=== PATIENT | male | born 2000 | race African-American/Black ===

== ENCOUNTER 2020-01-13 22:56 | Emergency (ER) | payer SELFPAY ==
[~2020-01-13] VITALS: Ht 190.5 cm; Wt 93.0 kg
[2020-01-13 23:02] VITALS: BP 142/70
[2020-01-13] MEDS ORDERED: LORAZEPAM 0.5MG TABLET PO ONE (23:30)
== END 2020-01-14 01:09 | disposition home or self-care (01) ==
LOC: ER 22:56
DX: F41.0 Panic disorder [episodic paroxysmal anxiety] (principal)
CPT/HCPCS: 71045; 93005; 99283